=== PATIENT | female | born 1970 | race Caucasian/White ===

== ENCOUNTER 2023-07-20 13:25 | Emergency (ER) | payer MEDICAID, SELFPAY ==
[2023-07-20 13:26] VITALS: BP 128/106; PULSE 93; RESP 18; TEMP 36.4; O2SAT 99; BMI 26.0
--- NOTE | 2023-07-20 14:22 | EDS_ITS ---
HPI HPI - GI History of Present Illness Chief Complaint: Abd Pain Informant: patient Abdominal Pain/Flank Pain Onset: Yesterday Context: Gradual Onset Timing: Continuous Quality: Sharp Location: LLQ Worsened by: Nothing Relieved by: Nothing Nausea/Vomiting/Emesis GI Symptom: Positive for Nausea and Vomiting Quality: Positive for Nonbilious; Negative for Blood streaks, Coffee ground or Hematemesis Diarrhea/Melena/Hematochezia GI Symptom: Positive for Diarrhea; Negative for Melena or Hematochezia Associated Symptoms Associated Symptoms: Negative for Dysuria, Frequency or Hematuria Narrative Narrative: Patient presents with abdominal pain, nausea, vomiting, and diarrhea that began yesterday. Patient states it is gradually getting worse. Patient describes the pain as sharp. Patient states the pain is localized to the left lower abdomen. Patient states nothing makes it better nothing makes it worse. Patient admits to some nausea and vomiting. Patient denies any hematemesis or coffee-ground emesis. Patient admits to some diarrhea. Patient states she has had some spots of blood in her stools that she noticed when she wiped but denies any melena or gross hematochezia. Patient has a history of ulcerative colitis. Patient denies any urinary complaints. Patient denies any fevers or chills. Prior similar symptoms: Yes PFSH PFSH Medical History (Updated 07/20/23 @ 17:[address] Kenn Dacosta, DO) Coronary artery disease Ulcerative colitis Home Medications oxycodone-acetaminophen 5 mg-325 mg tablet 1 tab PO Q6H PRN PRN Pain 1 day #4 TABLETS 07/20/23 [Rx Last Taken Unknown] Allergy/AdvReac Type Severity Reaction Status Date / Time ciprofloxacin [From Cipro] Allergy Mild Hives Verified 07/20/23 13:30 dicyclomine [From Bentyl] Allergy Mild Hives Verified 07/20/23 13:30 droperidol Allergy Mild Hives Verified 07/20/23 13:30 ibuprofen Allergy Mild Hives Verified 07/20/23 13:30 ketorolac [From Toradol] Allergy Mild Hives Verified 07/20/23 13:30 metoclopramide [From Reglan] AdvReac Mild Other Verified 07/20/23 13:30 prochlorperazine AdvReac Mild Other Verified 07/20/23 13:30 [From Compazine] Surgical History (Updated 07/20/23 @ 14:[address] Kenn Dacosta DO) Hx of appendectomy Hx of cholecystectomy Hx of inguinal herniorrhaphy Hx of laparoscopy S/P ORIF (open reduction internal fixation) fracture Social History Smoking Status: Never smoker ROS ROS ED Constitutional Constitutional ED: Denies chills or fever(s) Eyes Eyes: Denies blurry vision or change in vision ENT ENT ED: Denies rhinorrhea or sore throat Cardiovascular Cardiovascular: Denies chest pain or palpitations Respiratory/Chest Respiratory/Chest: Denies cough or dyspnea Gastrointestinal Gastrointestinal: Reports abdominal pain, diarrhea, nausea and vomiting; Denies melena Genitourinary Genitourinary ED: Denies dysuria or hematuria Musculoskeletal Musculoskeletal: Denies back pain or neck pain Integumentary Denies abscess or rash Neurologic Neurologic: Denies headache(s) or weakness Allergic/Immunologic Allergic/Immunologic ED: Denies mouth swelling or urticaria EXAM Physical Exam Const Vital Signs: 07/20/23 13:26 07/20/23 16:06 Temperature 97.6 F L Temperature Source Temporal Pulse Rate 93 Respiratory Rate 18 16 Blood Pressure 128/106 H Blood Pressure Mean 113 Pulse Ox 99 Oxygen Delivery Method Room Air Positive well nourished and well developed General Appearance ED: well developed and NAD HEENT Reports moist mucous membranes Neck supple and no JVD Resp normal respiratory effort and clear to auscultation bilaterally Cardio regular rate and regular rhythm GI non-distended Palpation: soft and tender LLQ; Negative for guarding or rebound tenderness present Extremity full ROM General Extremety ED: Negative for edema or tenderness General Extremity: Negative for edema Neuro CN's II-XII intact bilaterally, moves all extremities and no sensory deficits noted Sensorium / Orientation: alert Motor Exam: strength 5/5 throughout Psych mental status grossly normal MDM MDM MDM Narrative Medical decision making narrative: Differential diagnosis includes ulcerative colitis, diverticulitis, bowel obstruction, perforation, urinary tract infection, ureteral calculus, ovarian cyst, and pyelonephritis. CT scan of the abdomen pelvis will be obtained to assess for bowel obstruction, perforation, diverticulitis, ureteral calculus. CBC will be obtained to assess for leukocytosis and anemia. Basic metabolic profile will be obtained to assess for electrolyte abnormality and renal function. Urinalysis will be obtained to assess for urinary tract infection and hematuria. Lab Data Attestation: I reviewed the patient's lab results. Lab results narrative: CBC was reviewed and was within normal limits. Basic metabolic profile was reviewed and was within normal limits. Urinalysis was reviewed and was within normal limits. Labs: Laboratory Results - last 24 hr 07/20/23 07/20/23 15:00 16:05 WBC 7.0 RBC 4.89 Hgb 14.1 Hct 43.3 MCV 88.5 MCH 28.8 MCHC 32.6 RDW Std Deviation 41.1 RDW Coeff of Axel 12.7 Plt Count TNP MPV 10.5 Immature Gran % (Auto) 0.100 Neut % (Auto) 60.6 Lymph % (Auto) 30.2 [place] % (Auto) 7.5 Eos % (Auto) 1.0 Baso % (Auto) 0.6 Absolute Neuts (auto) 4.2 Absolute Lymphs (auto) 2.10 Nucleated RBC % 0 Platelet Estimate ADEQUATE RBC Morphology N CHROM Anisocytosis RARE Macrocytosis RARE Sodium 140 Potassium 4.0 Chloride 113 H Carbon Dioxide 22.0 Anion Gap 5 BUN 6 L Creatinine 0.60 Estim Creat Clear Calc 86.79 Est GFR (MDRD) Af Amer 133 Est GFR (MDRD) Non-Af 110 BUN/Creatinine Ratio 9.9 L Glucose 90 Calcium 9.5 Urine Color Yellow Urine Clarity Sl. Cloudy Urine pH 6.0 Ur Specific [place] 1.010 Urine Protein Negative Urine Glucose (UA) Normal Urine Ketones Negative Urine Occult Blood 25 H Urine Nitrite Negative Urine Bilirubin Negative Urine Urobilinogen Normal Ur Leukocyte Esterase Negative Urine RBC 0-5 SEEN Urine WBC 0 SEEN Ur Squamous Epith Cells 0-5 SEEN Urine Bacteria 0 SEEN Urine Mucus 0 SEEN Radiography Diagnostic Testing: Clinical Impression(s) from Imaging Studies Abdomen/Pelvis CT 07/20/23 14:31 IMPRESSION: No acute abnormalities in the abdomen or pelvis. Nonobstructing 2 mm stone in the right mid renal pole. Electronically Signed: Josh Linn MD at 16:35 EST , CT scan of the abdomen and pelvis was obtained. There is no acute abnormality noted. There is no evidence of bowel obstruction or perforation. This was interpreted by the radiologist was also independently reviewed by myself. Treatment and Re-Evaluation :: Patient was given IV fluids, morphine, and Zofran. Patient is feeling better on reevaluation. Patient was advised of her findings. Patient was instructed to follow-up with her primary care physician in 3 to 5 days. Patient was given a prescription for a very short course of Percocet. Patient understood and was agreeable with the plan. All questions were answered. Discharge Plan Triage Chief Complaint: Abd Pain ED Provider: Kenn Dacosta Dx/Rx/DC Orders Clinical Impression: Abdominal pain, Ulcerative colitis Instructions: ED Abdominal Pain Unkn Cause Fem, ED Ulcerative Colitis Prescriptions: New oxycodone-acetaminophen [oxycodone-acetaminophen] 5-325 mg tablet 1 tab PO Q6H PRN PRN (Reason: Pain) 1 Days Qty: 4 0RF Primary Care Provider: Monty Manjarrez,Out of Referrals: [facility] Doctor,Out of [Primary Care Provider] - 3-5 Days Disposition Disposition: Home, Self Care
--- NOTE | 2023-07-20 14:31 | CT_ITS ---
INDICATION: Abdominal pain EXAMINATION: CT Abdomen And Pelvis W/O Contrast Injection TECHNIQUE: Helically acquired images were obtained of the abdomen and pelvis without the use of IV contrast. A radiation dose optimization technique was used for this scan. Oral contrast: None. COMPARISON: None FINDINGS: Evaluation of the solid organs and vascular structures is limited without intravenous contrast. Visualized lung bases: Unremarkable Liver: Unremarkable Gallbladder: Surgically absent. Spleen: Unremarkable Pancreas: Unremarkable Adrenal Glands: Unremarkable Kidneys: Nonobstructing 2 mm stone in the right mid renal pole. Vasculature: Mild scattered aortoiliac atherosclerotic calcifications. GI Tract: Unremarkable Lymphadenopathy: None Peritoneum: No ascites. Bladder: Unremarkable Reproductive organs: Unremarkable Bones/Soft tissues: No suspicious osseous or soft tissue lesions CT/Abdomen/Pelvis without Cont IMPRESSION: No acute abnormalities in the abdomen or pelvis. Nonobstructing 2 mm stone in the right mid renal pole. Electronically Signed: Josh Linn MD at 16:35 EST ,
[2023-07-20 15:17] LABS: Absolute Neutrophil Count 4.2 X10^3/uL (2.0-7.7); Basophil# 0.04 X10^3/uL; Basophil% 0.6 % (0-1); Eosinophil# 0.07 X10^3/uL; Hematocrit 43.3 % (37-47); Hemoglobin 14.1 g/dL (12.0-15.0); Lymphocyte % 30.2 % (19-41); Mean Corp Hgb Conc 32.6 g/dL (32-36); Mean Corpuscular Hgb 28.8 pg (27.0-32.0); Mean Corpuscular Volume 88.5 fL (81-99); Mean Platelet Vol. 10.5 fl (6.2-12.0); Monocyte# 0.52 X10^3/uL; Monocyte% 7.5 % (0-10); NRBC Flagged by Analyzer 0 % (0-5); Neutrophil # 4.21 X10^3/uL (2.7-7.7); Neutrophil % 60.6 % (47-70); POSITIVE COUNT YES; RBC Distribution Width CV 12.7 % (11.6-14.6); RBC Distribution Width SD 41.1 fl (35.1-43.9); Red Blood Count 4.89 M/mm3 (4.2-5.4)
--- NOTE | 2023-07-20 15:23 | NURSING ---
AT 1410. THIS RN HANGING ZOSYN. PT BEGINS SCREAMING. STATES SOMETHING IS WRONG . PT NAUSEATED, FLUSHED. BECOMES LESS RESPONSIVE. DR TO ROOM. PT BECOMES LESS AND LESS RESPONSIVE AND PULSE LOST. SEE CODE BLUE
[2023-07-20 15:39] LABS: Differential Indicated SCAN CRITERIA MET
[2023-07-20] MEDS: 0.9% Normal Saline (1000mL) 1,000 ML 1000 ML IV (15:40)
[2023-07-20 15:41] LABS: Platelet Estimate ADEQUATE (ADEQ)
[2023-07-20] MEDS: Ondansetron 4 MG/2 ML Vial IV (15:41)
[2023-07-20 15:42] LABS: Anisocytosis RARE; Macrocytosis RARE; Red Cell Morphology N CHROM NORMAL (NORM C&C)
[2023-07-20 15:48] LABS: Anion Gap 5 (5-15); BUN 6 mg/dL (7-18); BUN/Creat Ratio 9.9 RATIO (10-20); Calcium,Total 9.5 mg/dL (8.5-10.1); Chloride 113 mmol/L (98-107); EST Glomerular Filtration Rate 110 mL/min (>60); Est Glom Filt Rate - Afr Amer 133 mL/min (>60); Estimated Creatinine Clearance 86.79 ml/min; Glucose 90 mg/dL (74-106); Sodium Level 140 mmol/L (136-145)
--- NOTE | 2023-07-20 15:49 | ED.RN ---
PATIENT COMPLAINS OF PAIN AND BURNING TO R AC WHERE IV IS DURING THE START OF IV FLUIDS AND ZOFRAN BEING ADMINISTERED, SWELLING NOTED AND NO BLOOD RETURN FROM IV OBSERVED. IV CATHETER PULLED FROM SITE AND ICE PACK APPLIED TO SITE.
--- NOTE | 2023-07-20 15:59 | ED.RN ---
VERBAL ORDER TO CHANGE MORPHINE DOSE TO IM ADMINISTRATION INSTEAD OF IV DUE TO PREVIOUS IV INFILTRATION.
[2023-07-20] MEDS: Morphine 4 MG/ML Syringe IM (16:04)
[2023-07-20 16:06] VITALS: RESP 16
[2023-07-20 16:10] LABS: Bacteria 0 SEEN /hpf (None Seen); Mucous, Urine 0 SEEN /hpf (<or=2+); White Blood Cells 0 SEEN /hpf (0-5)
[2023-07-20 16:20] LABS: Color, Urine Yellow (Yellow); Glucose, Dipstick Normal (Normal); Ketone-Dipstick Negative (Negative); Leukocyte Esterase-Dipstick Negative /ul (Negative); Nitrite-Dipstick Negative (Negative); Occult Blood-Urine 25 /ul (Negative); Protein-Dipstick Negative (Negative); Urine Bilirubin Dipstick Negative (Negative); Urine Clarity Sl. Cloudy (Clear); Urine Urobilinogen Normal (Normal)
[2023-07-20 16:27] LABS: Red Blood Cells-Urine 0-5 SEEN /hpf (0-5); Squamous Epithelial Cells - UA 0-5 SEEN /hpf (5-10)
[2023-07-20 17:30] VITALS: BP 109/87; PULSE 108; RESP 16; O2SAT 98
== END 2023-07-20 17:31 | disposition home or self-care (01) ==
PROVIDERS: Emergency Provider Emergency Medicine; Visit Provider Emergency Medicine
DX: R10.32 Left lower quadrant pain (principal); K51.90 Ulcerative colitis, unspecified, without complications; I25.10 Atherosclerotic heart disease of native coronary artery without angina pectoris
CPT/HCPCS: 74176; 80048; 81001; 85025; 96374; 96375; 96376; 99284; J7030; A4216; J2405

== ENCOUNTER 2023-08-14 18:56 | Emergency (ER) | payer MEDICAID, SELFPAY ==
[2023-08-14 19:00] VITALS: BP 132/93; PULSE 69; RESP 14; TEMP 36.3; O2SAT 100; BMI 25.8
--- NOTE | 2023-08-14 19:35 | ED.VIS.GI ---
HPI HPI - GI History of Present Illness Chief Complaint: Abd Pain Informant: patient Abdominal Pain/Flank Pain Onset: Today Context: Gradual Onset Timing: Continuous Quality: Aching Location: LLQ Current Severity: Mild Maximum Severity: Mild Worsened by: Nothing Relieved by: Nothing Nausea/Vomiting/Emesis GI Symptom: Negative for Nausea or Vomiting Diarrhea/Melena/Hematochezia GI Symptom: Negative for Diarrhea, Melena or Hematochezia Associated Symptoms Associated Symptoms: Negative for Dysuria, Frequency, Hematuria or Urgency Narrative Narrative: 52-year-old female history of kidney stone and ulcerative colitis. Prior appendectomy, right inguinal hernia repair and cholecystectomy. Patient states that she has left lower quadrant abdominal pain today. Mild nausea. Mildly loose stools. No melena. No vomiting. No hematemesis. No fever. No history of diverticulitis. Recently normal bowel movements. No trauma. Denies any fever. No significant weight change. Prior similar symptoms: Yes Recent Illness/Hospitalization: No PFSH PFSH Medical History Coronary artery disease Ulcerative colitis Home Medications oxycodone-acetaminophen 5 mg-325 mg tablet 1 tab PO Q6H PRN PRN Pain 1 day #4 TABLETS 07/20/23 [Rx Last Taken Unknown] Allergy/AdvReac Type Severity Reaction Status Date / Time ciprofloxacin [From Cipro] Allergy Mild Hives Verified 08/14/23 18:59 dicyclomine [From Bentyl] Allergy Mild Hives Verified 08/14/23 18:59 droperidol Allergy Mild Hives Verified 08/14/23 18:59 ibuprofen Allergy Mild Hives Verified 08/14/23 18:59 ketorolac [From Toradol] Allergy Mild Hives Verified 08/14/23 18:59 lidocaine Allergy HIVES Verified 08/14/23 18:59 metoclopramide [From Reglan] AdvReac Mild Other Verified 08/14/23 18:59 prochlorperazine AdvReac Mild Other Verified 08/14/23 18:59 [From Compazine] Surgical History Hx of appendectomy Hx of cholecystectomy Hx of inguinal herniorrhaphy Hx of laparoscopy S/P CABG x 4 S/P ORIF (open reduction internal fixation) fracture Social History Smoking Status: Never smoker ROS ROS ED ROS Narrative Chest abdominal pain. No recent illness. Review of Systems ROS Unobtainable: Denies due to encephalopathy Constitutional Constitutional ED: Denies chills or fever(s) ENT ENT ED: Denies ear pain Cardiovascular Cardiovascular: Denies chest pain Respiratory/Chest Respiratory/Chest: Denies cough Gastrointestinal Gastrointestinal: Reports abdominal pain and nausea; Denies constipation, melena or vomiting Genitourinary Genitourinary ED: Denies dysuria or hematuria Musculoskeletal Musculoskeletal: Denies arthralgias, back pain, myalgias or neck pain Integumentary Denies abscess, Abrasions or rash Neurologic Neurologic: Denies headache(s) Psychiatric Psychiatric: Denies anxiety or depression Endocrine Endocrinology: Denies polydipsia or polyphagia Hematologic/Lymphatic Hematologic/Lymphatic: Denies easy bleeding, easy bruising or lymphadenopathy Allergic/Immunologic Allergic/Immunologic ED: Denies mouth swelling, tongue swelling or urticaria EXAM Physical Exam Narrative Exam Narrative: Well-appearing 52-year-old female. Vital signs stable afebrile. H EENT exam unremarkable. Neck nontender. Lungs clear to auscultation bilateral. Heart regular rhythm no murmur rate about 70. Chest wall and ribs nontender. Abdomen soft nondistended normal bowel sounds no peritoneal signs. No hernia or mass. Mild tenderness left lower quadrant. No distention or obstruction. No signs of trauma. Moving all 4 extremities. Nontender no edema. Back nontender. Awake and alert. No focal motor deficits. Benign exam. Mild left lower quadrant tenderness only. Const Vital Signs: 08/14/23 19:00 08/14/23 21:35 Temperature 97.3 F L Temperature Source Temporal Pulse Rate 69 66 Respiratory Rate 14 14 Blood Pressure 132/93 H 109/70 Blood Pressure Mean 106 83 Pulse Ox 100 99 Oxygen Delivery Method Room Air Positive well nourished and well developed; Negative for cachectic, contractures or unkempt General Appearance ED: well developed and NAD; Negative for unkempt, cachectic, contractures or pallor Nutritional Appearance: Negative for cachectic HEENT Reports moist mucous membranes; Denies dry mucous membranes normocephalic and atraumatic; Negative for trauma or tenderness Mouth ED: No dry mucous membranes Mouth: No dry mucous membranes Eyes PERRL and EOMs intact bilaterally General Eye ED: Negative for pale conjunctiva or scleral icterus Neck no lymphadenopathy, supple and no JVD General: Negative for tenderness Carotids: Negative for other Lymph Lymphatic: Negative for other Resp normal respiratory effort and clear to auscultation bilaterally Effort and Inspection: Negative for respiratory distress or retractions Auscultation: Negative for rales, rhonchi, wheezes, diminished lung sounds or other Cardio regular rate, regular rhythm, S1 normal heart sound, S2 normal heart sound and no murmurs Rate: Negative for bradycardia or tachycardic Rhythm: Negative for abnormal rhythm GI non-distended and no masses; Negative for non-tender GI Narrative: Tender left lower quadrant only. No peritoneal signs. No hernia or mass. No obstruction. Inspection: Negative for abdominal distention Auscultation: normoactive bowel sounds Palpation: soft and tender; Negative for guarding, rigid, hepatomegaly, splenomegaly, hernia, mass, pulsatile mass or rebound tenderness present Back/Spine no CVA tenderness General Back: Negative for CVA tenderness Cervical Spine: Negative for cervical spine tenderness Thoracic Spine / Upper Back: Negative for thoracic spinal tenderness Lumbar Spine / Lower Back: Negative for lumbar spinal tenderness Coccyx: Negative for other Extremity full ROM General Extremety ED: Negative for edema or tenderness General Extremity: Negative for edema Neuro CN's II-XII intact bilaterally and moves all extremities Sensorium / Orientation: alert, oriented to person, oriented to place and oriented to time; Negative for orientation impaired, confused, lethargic or stuporous Motor Exam: strength 5/5 throughout Psych mental status grossly normal and thought process normal Appearance: Negative for unkempt Attitude: No agitated Mood & Affect: Negative for depressed, anxious or tearful Skin no wounds General Skin Exam: Negative for jaundice or pallor Lesions: no lesions Rashes: no rashes Trauma: Negative for abrasion Nails: Negative for discolored MDM MDM MDM Narrative Medical decision making narrative: 52-year-old left lower quadrant abdominal pain. History of ulcerative colitis. I do not feel hernia. No signs of obstruction. Rule diverticulitis versus other etiologies. CAT scan and labs. Morphine IV and Zofran. Patient had a similar workup 1 to 2 months ago which was negative. Repeat exam at 10:10 PM patient doing well. We went over all of her test results are normal. She had a similar workup done 1 to 2 months ago was negative also. She will be discharged home. Tylenol for pain. Follow-up with your doctor. History & Record Review Discussion w/independent historian: Patient Additional record(s) reviewed:: Prior inpatient record, Prior outpatient record, Prior ED visit and Prior labs Lab Data Attestation: I reviewed the patient's lab results. Lab results narrative: CBC normal white count of 6.4. H&H 13 and 39. Platelets 294. Electrolytes show gap of 4. Normal BUN and 9 creatinine [address]6. Glucose 93. CT abdomen pelvis with IV contrast shows no acute abnormality. Read by the radiologist. Reviewed by me. Urinalysis negative. Labs: Laboratory Results - last 24 hr 08/14/23 19:20 WBC 6.4 RBC 4.42 Hgb 13.0 Hct 39.2 MCV 88.7 MCH 29.4 MCHC 33.2 RDW Std Deviation 42.0 RDW Coeff of Axel 13.0 Plt Count 294 MPV 9.5 Immature Gran % (Auto) 0.300 Neut % (Auto) 42.8 L Lymph % (Auto) 44.6 H [place] % (Auto) 9.4 Eos % (Auto) 2.4 Baso % (Auto) 0.5 Absolute Neuts (auto) 2.7 Absolute Lymphs (auto) 2.83 Nucleated RBC % 0 Sodium 142 Potassium 3.5 Chloride 112 H Carbon Dioxide 26.0 Anion Gap 4 L BUN 9 Creatinine 0.68 Estim Creat Clear Calc 76.34 Est GFR (MDRD) Af Amer 116 Est GFR (MDRD) Non-Af 96 BUN/Creatinine Ratio 13.3 Glucose 93 Calcium 9.2 Urine Color Straw Urine Clarity Clear Urine pH 7.0 Ur Specific [place] 1.010 Urine Protein Negative Urine Glucose (UA) Normal Urine Ketones Negative Urine Occult Blood 10 H Urine Nitrite Negative Urine Bilirubin Negative Urine Urobilinogen Normal Ur Leukocyte Esterase 25 H Urine RBC 0 SEEN Urine WBC 0-5 SEEN Ur Squamous Epith Cells 0-5 SEEN Urine Bacteria RARE Urine Mucus 0 SEEN Radiography Diagnostic Testing: Clinical Impression(s) from Imaging Studies Abdomen/Pelvis CT 08/14/23 20:54 IMPRESSION: No acute findings in the abdomen or pelvis. Electronically Signed: Fabrice Morgan MD at 21:43 EST , Discharge Plan Triage Chief Complaint: Abd Pain ED Provider: Rigo Sylvester Dx/Rx/DC Orders Clinical Impression: History of ulcerative colitis, Abdominal pain Instructions: Abdominal Pain Prescriptions: No Action oxycodone-acetaminophen [oxycodone-acetaminophen] 5-325 mg tablet 1 tab PO Q6H PRN PRN (Reason: Pain) 1 Days Qty: 4 0RF Primary Care Provider: Care Physician,No Primary Referrals: Chris Kovacs MD [Med Staff - [employer]] - As Needed Care Physician,No Primary [Primary Care Provider] - Activity Restrictions/Additional Instructions: Plenty of fluids and rest. Tylenol for pain. Your labs, CAT scan of your abdomen pelvis and urine were all unremarkable. No specific cause for your pain. Follow-up with either your primary care provider or the doctor referred you to if not improving. Disposition Disposition: Home, Self Care
[2023-08-14] MEDS: Ondansetron 4 MG/2 ML Vial IV (19:41)
[2023-08-14] MEDS: morphine 8 MG/ML Syringe 6 MG IV (19:41)
[2023-08-14 19:42] LABS: Absolute Lymphocyte Count 2.83 X10^3/uL (0.83-4.51); Absolute Neutrophil Count 2.7 X10^3/uL (2.0-7.7); Basophil# 0.03 X10^3/uL; Basophil% 0.5 % (0-1); Eosinophil# 0.15 X10^3/uL; Eosinophils% 2.4 % (0-5); Hematocrit 39.2 % (37-47); Lymphocyte # 2.83 X10^3/ul (0.83-4.51); Lymphocyte % 44.6 % (19-41); Mean Corp Hgb Conc 33.2 g/dL (32-36); Mean Corpuscular Hgb 29.4 pg (27.0-32.0); Mean Corpuscular Volume 88.7 fL (81-99); Mean Platelet Vol. 9.5 fl (6.2-12.0); Monocyte% 9.4 % (0-10); NRBC Flagged by Analyzer 0 % (0-5); Neutrophil # 2.72 X10^3/uL (2.7-7.7); Neutrophil % 42.8 % (47-70); Platelet Count 294 K/mm3 (150-450); Red Blood Count 4.42 M/mm3 (4.2-5.4); White Blood Count 6.4 K/mm3 (4.4-11.0)
[2023-08-14 20:04] LABS: Anion Gap 4 (5-15); BUN 9 mg/dL (7-18); BUN/Creat Ratio 13.3 RATIO (10-20); Calcium,Total 9.2 mg/dL (8.5-10.1); Chloride 112 mmol/L (98-107); Creatinine, Serum 0.68 mg/dL (0.55-1.02); EST Glomerular Filtration Rate 96 mL/min (>60); Est Glom Filt Rate - Afr Amer 116 mL/min (>60); Estimated Creatinine Clearance 76.34 ml/min; Glucose 93 mg/dL (74-106); Potassium 3.5 mmol/L (3.5-5.1); Sodium Level 142 mmol/L (136-145)
--- NOTE | 2023-08-14 20:54 | CT_ITS ---
EXAM: CT ABDOMEN AND PELVIS WITH INTRAVENOUS CONTRAST CLINICAL INDICATION: LLQ abd pain TECHNIQUE: Helically acquired images were obtained of the abdomen and pelvis with intravenous contrast. This CT exam was performed using one or more of the following dose reduction techniques: automated exposure control, adjustment of the mA and/or kV according to patient size, and/or use of iterative reconstruction technique. CONTRAST: IV 100mL [id number] COMPARISON: No relevant prior studies available. FINDINGS: LOWER THORAX: Unremarkable. Lung bases are clear. No cardiomegaly. No significant pericardial effusion. ABDOMEN: LIVER: Unremarkable. Homogeneous. No focal mass. GALLBLADDER AND BILE DUCTS: There are surgical clips from a cholecystectomy. No intra- or extrahepatic biliary ductal dilation. PANCREAS: Unremarkable. No focal cystic or solid mass. SPLEEN: Unremarkable. Normal size without focal cystic or solid mass. ADRENALS: Unremarkable. No nodules. KIDNEYS AND URETERS: Unremarkable. Normal renal size and position. No hydronephrosis. STOMACH AND BOWEL: Unremarkable. No stomach or bowel distention. No focal inflammatory change. PELVIS: APPENDIX: There are surgical sutures at the base of the cecum from previous appendectomy. BLADDER: Unremarkable. REPRODUCTIVE: Unremarkable as visualized. No mass. ABDOMEN and PELVIS: INTRAPERITONEAL SPACE: Unremarkable. No ascites or other fluid collection. No free air. BONES/JOINTS: Unremarkable. No suspicious lytic or blastic abnormality. SOFT TISSUES: Unremarkable. No discrete abdominal or pelvic wall hernia. VASCULATURE: Unremarkable. Abdominal aorta is non-dilated. LYMPH NODES: Unremarkable. No enlarged lymph nodes. CT/Abdomen/Pelvis W IV Cont ONLY IMPRESSION: No acute findings in the abdomen or pelvis. Electronically Signed: Fabrice Morgan MD at 21:43 EST ,
[2023-08-14 21:10] LABS: Mucous, Urine 0 SEEN /hpf (<or=2+); Red Blood Cells-Urine 0 SEEN /hpf (0-5)
[2023-08-14 21:11] LABS: Color, Urine Straw (Yellow); Glucose, Dipstick Normal (Normal); Ketone-Dipstick Negative (Negative); Leukocyte Esterase-Dipstick 25 /ul (Negative); Nitrite-Dipstick Negative (Negative); Occult Blood-Urine 10 /ul (Negative); Protein-Dipstick Negative (Negative); Urine Bilirubin Dipstick Negative (Negative); Urine Clarity Clear (Clear); Urine Urobilinogen Normal (Normal)
[2023-08-14 21:17] LABS: Squamous Epithelial Cells - UA 0-5 SEEN /hpf (5-10); White Blood Cells 0-5 SEEN /hpf (0-5)
[2023-08-14 21:18] LABS: Bacteria RARE /hpf (None Seen)
[2023-08-14 21:35] VITALS: BP 109/70; PULSE 66; RESP 14; O2SAT 99
[2023-08-14 22:22] VITALS: BP 126/75; PULSE 66; RESP 16; TEMP 36.6; O2SAT 98
== END 2023-08-14 22:23 | disposition home or self-care (01) ==
PROVIDERS: Emergency Provider Emergency Medicine; Visit Provider Emergency Medicine
DX: R10.32 Left lower quadrant pain (principal); K51.90 Ulcerative colitis, unspecified, without complications; I25.10 Atherosclerotic heart disease of native coronary artery without angina pectoris; Z95.1 Presence of aortocoronary bypass graft
CPT/HCPCS: 74177; 80048; 81001; 85025; 96374; 96375; 99283; Q9967; A4216; J2405

== ENCOUNTER 2023-10-05 09:05 | Emergency (ER) | payer MEDICAID, SELFPAY ==
[2023-10-05 09:06] VITALS: BP 113/68; PULSE 68; RESP 18; TEMP 35.9; O2SAT 100; BMI 25.0
--- NOTE | 2023-10-05 10:24 | EDS_ITS ---
HPI History of Present Illness Chief Complaint: Abd Pain Informant: patient Narrative Narrative: 53-year-old female with a history of ulcerative colitis is followed by gastroenterology at [facility]. Patient states that she has been on prednisone 40 mg since last year. She states that she recently started taking activity no infusions and just had her third infusion last week. She notes intermittent symptoms of left lower abdominal pain and blood with wiping after diarrhea movement intermittently since. States that last night and today the pain seems worse. She is requesting morphine and something for nausea. She states that her doctor does not write her any pain medication at this time. Patient was seen in the emergency department in July and August for similar complaints had 2 negative CAT scans. She states that she had a colonoscopy in October/November of last year which showed a ulceration on the left lower quadrant of her abdomen. Patient is denying any dyspepsia or upper GI symptoms other than nausea. [facility] Medical History Coronary artery disease Ulcerative colitis Home Medications oxycodone-acetaminophen 5 mg-325 mg tablet 1 tab PO Q6H PRN PRN Pain 1 day #4 TABLETS 07/20/23 [Rx Last Taken Unknown] aspirin 81 mg chewable tablet 1 tab PO DAILY 10/05/23 [History Last Taken Unknown] azelastine 137 mcg (0.1 %) nasal spray aerosol 1 spray intranasal BID 10/05/23 [History Last Taken Unknown] cyanocobalamin (vitamin B-12) 1,000 mcg tablet 1,000 mcg PO DAILY 10/05/23 [History Last Taken Unknown] famotidine 20 mg tablet 20 mg PO BID 10/05/23 [History Last Taken Unknown] ferrous sulfate 325 mg (65 mg iron) tablet (FeroSul) 325 mg PO DAILY 10/05/23 [History Last Taken Unknown] fluticasone propionate 50 mcg/actuation nasal spray,suspension 1 spray intranasal DAILY 10/05/23 [History Last Taken Unknown] folic acid 1 mg tablet 1 mg PO DAILY 10/05/23 [History Last Taken Unknown] hyoscyamine sulfate 0.125 mg sublingual tablet 0.125 mg sublingual Q8H PRN PRN abdominal pain 10/05/23 [History Last Taken Unknown] meclizine 25 mg tablet 25 mg PO TID 10/05/23 [History Last Taken Unknown] metoprolol succinate 25 mg tablet,extended release 24 hr 25 mg PO QHS 10/05/23 [History Last Taken Unknown] metoprolol succinate 50 mg tablet,extended release 24 hr 50 mg PO QHS 10/05/23 [History Last Taken Unknown] nitrofurantoin monohydrate/macrocrystals 100 mg capsule 1 cap PO BID 10/05/23 [History Last Taken Unknown] ondansetron 4 mg disintegrating tablet 4 mg PO Q6H PRN PRN Nausea #10 tabs 10/05/23 [Rx Last Taken Unknown] ondansetron 4 mg disintegrating tablet 4 mg PO Q8H PRN PRN nausea 10/05/23 [History Last Taken Unknown] oxycodone-acetaminophen 5 mg-325 mg tablet 1 tab PO Q6H PRN PRN Pain 3 days #12 TABLETS 10/05/23 [Rx Last Taken Unknown] pantoprazole 40 mg tablet,delayed release 40 mg PO QHS 10/05/23 [History Last Taken Unknown] rosuvastatin 10 mg tablet 10 mg PO QHS 10/05/23 [History Last Taken Unknown] sucralfate 1 gram tablet 1 g PO 4X/DAY 10/05/23 [History Last Taken Unknown] tamsulosin 0.4 mg capsule 0.4 mg PO QHS 10/05/23 [History Last Taken Unknown] tramadol 50 mg tablet 50 mg PO Q6H PRN PRN pain 10/05/23 [History Last Taken Unknown] triamcinolone acetonide 0.1 % topical cream 1 applic topical BID PRN PRN itching 10/05/23 [History Last Taken Unknown] Allergy/AdvReac Type Severity Reaction Status Date / Time ciprofloxacin [From Cipro] Allergy Mild Hives Verified 10/05/23 09:06 dicyclomine [From Bentyl] Allergy Mild Hives Verified 10/05/23 09:06 droperidol Allergy Mild Hives Verified 10/05/23 09:06 ibuprofen Allergy Mild Hives Verified 10/05/23 09:06 ketorolac [From Toradol] Allergy Mild Hives Verified 10/05/23 09:06 lidocaine Allergy HIVES Verified 10/05/23 09:06 metoclopramide [From Reglan] AdvReac Mild Other Verified 10/05/23 09:06 prochlorperazine AdvReac Mild Other Verified 10/05/23 09:06 [From Compazine] Surgical History Hx of appendectomy Hx of cholecystectomy Hx of inguinal herniorrhaphy Hx of laparoscopy S/P CABG x 4 S/P ORIF (open reduction internal fixation) fracture Social History Smoking Status: Never smoker ROS ROS ED Constitutional Constitutional ED: Denies chills or weight loss Eyes Eyes: Denies change in vision or diplopia ENT ENT ED: Denies ear pain, rhinorrhea or sore throat Cardiovascular Cardiovascular: Denies chest pain, orthopnea, palpitations or racing heartbeat Respiratory/Chest Respiratory/Chest: Denies cough, dyspnea or orthopnea Gastrointestinal Gastrointestinal: Reports abdominal pain and other Details: BRBPR with wiping. No rectal pain ; Denies diarrhea, nausea or vomiting Genitourinary Genitourinary ED: Denies dysuria, hematuria or urinary frequency Musculoskeletal Musculoskeletal: Denies arthralgias or myalgias Integumentary Denies abscess or rash Neurologic Neurologic: Denies headache(s) or weakness Psychiatric Psychiatric: Denies anxiety, depression, suicidal ideation or suicidal thoughts Endocrine Endocrinology: Denies polydipsia, polyphagia or polyuria Allergic/Immunologic Allergic/Immunologic ED: Denies mouth swelling, tongue swelling or urticaria EXAM Physical Exam Const Vital Signs: 10/05/23 09:06 10/05/23 11:00 Temperature 96.7 F L Temperature Source Temporal Pulse Rate 68 73 Respiratory Rate 18 18 Blood Pressure 113/68 98/67 Blood Pressure Mean 83 78 Pulse Ox 100 93 Oxygen Delivery Method Room Air Positive well nourished and well developed General Appearance ED: well developed HEENT Reports normocephalic, head/scalp atraumatic and moist mucous membranes Eyes PERRL and EOMs intact bilaterally Neck no lymphadenopathy, supple and no JVD Resp normal respiratory effort and clear to auscultation bilaterally Cardio regular rate, regular rhythm and no murmurs GI Inspection: Negative for abdominal distention Auscultation: normoactive bowel sounds Palpation: soft, tender LLQ and guarding; Negative for rebound tenderness present Back/Spine no CVA tenderness and normal ROM Extremity normal to inspection General Extremety ED: Negative for edema General Extremity: Negative for edema Neuro oriented x3 and CN's II-XII intact bilaterally Sensorium / Orientation: alert Motor Exam: strength 5/5 throughout Psych mental status grossly normal Mood & Affect: Negative for depressed or tearful Skin no rashes or lesions noted and no wounds MDM MDM MDM Narrative Medical decision making narrative: Differential includes but not limited to ulcerative colitis flare diverticulitis this thrombocytopenia colitis NOS Patient's blood work showed a white count 5 hemoglobin 13.7 platelet count of 264. BUN of 13 creatinine 0.87 CO2 26 anion gap of 5 normal LFTs. Patient's symptoms have been present for months waxing and waning. She has had 2 prior CTs for the same complaint recently that have been negative I do not feel strongly that the patient needs a CT today. Her abdomen is soft without rebound Patient currently taking 40 mg of prednisone in addition to her injections. I can write for her to have pain and nausea medication at home. Would recommend that she talk with her doctor regarding her symptoms and see if they wish to change anything. She notes understanding of plan History & Record Review Discussion w/independent historian: Patient Lab Data Labs: Laboratory Results - last 24 hr 10/05/23 10:26 WBC 5.0 RBC 4.77 Hgb 13.7 Hct 42.3 MCV 88.7 MCH 28.7 MCHC 32.4 RDW Std Deviation 40.4 RDW Coeff of Axel 12.3 Plt Count 264 MPV 9.9 Immature Gran % (Auto) 0.000 Neut % (Auto) 48.5 Lymph % (Auto) 41.7 H [place] % (Auto) 7.0 Eos % (Auto) 2.4 Baso % (Auto) 0.4 Absolute Neuts (auto) 2.4 Absolute Lymphs (auto) 2.08 Nucleated RBC % 0 Sodium 141 Potassium 4.0 Chloride 110 H Carbon Dioxide 26.0 Anion Gap 5 BUN 13 Creatinine 0.87 Estim Creat Clear Calc 58.49 Est GFR (MDRD) Af Amer 87 Est GFR (MDRD) Non-Af 72 BUN/Creatinine Ratio 14.9 Glucose 90 Calcium 8.8 Total Bilirubin 0.40 AST 30 ALT 29 Alkaline Phosphatase 71 Total Protein 7.1 Albumin 3.7 Globulin 3.4 Albumin/Globulin Ratio 1.1 Discharge Plan Triage Chief Complaint: Abd Pain ED Provider: Andrew Sharp Dx/Rx/DC Orders Clinical Impression: Rectal bleeding, Abdominal pain, Ulcerative colitis Instructions: ED Ulcerative Colitis Prescriptions: New oxycodone-acetaminophen [oxycodone-acetaminophen] 5-325 mg tablet 1 tab PO Q6H PRN PRN (Reason: Pain) 3 Days Qty: 12 0RF ondansetron [ondansetron] 4 mg tablet,disintegrating 4 mg PO Q6H PRN PRN (Reason: Nausea) Qty: 10 0RF No Action oxycodone-acetaminophen [oxycodone-acetaminophen] 5-325 mg tablet 1 tab PO Q6H PRN PRN (Reason: Pain) 1 Days Qty: 4 0RF metoprolol succinate 50 mg tablet extended release 24 hr 50 mg PO QHS sucralfate 1 gram tablet 1 g PO 4X/DAY cyanocobalamin (vitamin B-12) 1,000 mcg tablet 1,000 mcg PO DAILY tramadol 50 mg tablet 50 mg PO Q6H PRN PRN (Reason: pain) triamcinolone acetonide 0.1 % cream 1 applic topical BID PRN PRN (Reason: itching) famotidine 20 mg tablet 20 mg PO BID tamsulosin 0.4 mg capsule 0.4 mg PO QHS meclizine 25 mg tablet 25 mg PO TID pantoprazole 40 mg tablet,delayed release (DR/EC) 40 mg PO QHS ferrous sulfate [FeroSul] 325 mg (65 mg iron) tablet 325 mg PO DAILY hyoscyamine sulfate 0.125 mg tablet, sublingual 0.125 mg sublingual Q8H PRN PRN (Reason: abdominal pain) aspirin 81 mg tablet,chewable 1 tab PO DAILY folic acid 1 mg tablet 1 mg PO DAILY metoprolol succinate 25 mg tablet extended release 24 hr 25 mg PO QHS azelastine 137 mcg (0.1 %) aerosol,spray 1 spray INTRANASAL BID ondansetron 4 mg tablet,disintegrating 4 mg PO Q8H PRN PRN (Reason: nausea) fluticasone propionate 50 mcg/actuation spray,suspension 1 spray INTRANASAL DAILY rosuvastatin 10 mg tablet 10 mg PO QHS nitrofurantoin monohyd/m-cryst 100 mg capsule 1 cap PO BID Primary Care Provider: Care Physician,No Primary Referrals: Care Physician,No Primary [Primary Care Provider] - Activity Restrictions/Additional Instructions: Please call and discuss your symptoms and your ED visit with your continuing education specialist. Disposition Disposition: Home, Self Care
[2023-10-05] MEDS: Morphine 2 MG/ML Syringe IV (10:34)
[2023-10-05] MEDS: Ondansetron 4 MG/2 ML Vial IV (10:34)
[2023-10-05 10:53] LABS: Absolute Lymphocyte Count 2.08 X10^3/uL (0.83-4.51); Absolute Neutrophil Count 2.4 X10^3/uL (2.0-7.7); Basophil# 0.02 X10^3/uL; Basophil% 0.4 % (0-1); Eosinophil# 0.12 X10^3/uL; Eosinophils% 2.4 % (0-5); Hematocrit 42.3 % (37-47); Hemoglobin 13.7 g/dL (12.0-15.0); Lymphocyte # 2.08 X10^3/ul (0.83-4.51); Lymphocyte % 41.7 % (19-41); Mean Corp Hgb Conc 32.4 g/dL (32-36); Mean Corpuscular Hgb 28.7 pg (27.0-32.0); Mean Corpuscular Volume 88.7 fL (81-99); Mean Platelet Vol. 9.9 fl (6.2-12.0); Monocyte# 0.35 X10^3/uL; NRBC Flagged by Analyzer 0 % (0-5); Neutrophil # 2.42 X10^3/uL (2.7-7.7); Neutrophil % 48.5 % (47-70); Platelet Count 264 K/mm3 (150-450); RBC Distribution Width CV 12.3 % (11.6-14.6); RBC Distribution Width SD 40.4 fl (35.1-43.9); Red Blood Count 4.77 M/mm3 (4.2-5.4)
[2023-10-05 11:00] VITALS: BP 98/67; PULSE 73; RESP 18; O2SAT 93
[2023-10-05 11:10] LABS: ALB/GLOB Ratio 1.1 RATIO (0.9-2.4); AST(SGOT) 30 U/L (15-37); Alanine Aminotransfer ALT/SGPT 29 U/L (13-56); Albumin, Serum 3.7 g/dL (3.2-5.0); Alkaline Phosphatase 71 U/L (45-117); Anion Gap 5 (5-15); BUN 13 mg/dL (7-18); BUN/Creat Ratio 14.9 RATIO (10-20); Calcium,Total 8.8 mg/dL (8.5-10.1); Chloride 110 mmol/L (98-107); Creatinine, Serum 0.87 mg/dL (0.55-1.02); EST Glomerular Filtration Rate 72 mL/min (>60); Est Glom Filt Rate - Afr Amer 87 mL/min (>60); Estimated Creatinine Clearance 58.49 ml/min; Globulin 3.4 g/dL (2.2-4.2); Glucose 90 mg/dL (74-106); Protein, Total 7.1 g/dL (6.4-8.2); Sodium Level 141 mmol/L (136-145)
[2023-10-05 11:58] VITALS: BP 98/67; PULSE 62; RESP 18; TEMP 36.4; O2SAT 95
== END 2023-10-05 11:58 | disposition home or self-care (01) ==
PROVIDERS: Emergency Provider Emergency Medicine; Visit Provider Emergency Medicine
DX: K51.90 Ulcerative colitis, unspecified, without complications (principal); R10.32 Left lower quadrant pain; I25.10 Atherosclerotic heart disease of native coronary artery without angina pectoris; Z79.82 Long term (current) use of aspirin; Z79.899 Other long term (current) drug therapy
CPT/HCPCS: 80053; 85025; 96374; 96375; 99282; J2405

== ENCOUNTER 2023-11-14 10:50 | Emergency (ER) | payer MEDICAID, SELFPAY ==
[2023-11-14 10:50] VITALS: BP 106/80; PULSE 66; RESP 16; TEMP 36; O2SAT 100; BMI 25.6
--- NOTE | 2023-11-14 11:17 | ED.RN ---
1110 pt decided she didn't want to wait anymore so she left.
== END 2023-11-14 11:10 | disposition left against medical advice (07) ==
LOC: ED 11:21
DX: Z53.21 Procedure and treatment not carried out due to patient leaving prior to being seen by health care provider (principal)